=== PATIENT | male | born 1995 | race Caucasian/White ===

== ENCOUNTER 2018-01-24 16:32 | Emergency (ER) | payer OTHER ==
--- NOTE | 2018-01-24 17:09 | EDPHY ---
General Time Seen by Provider: 01/24/18 17:02 Narrative: CHIEF COMPLAINT: Burn to hand HISTORY OF PRESENT ILLNESS: Patient presents with complaints of burn to hand. He states that he was at work earlier today, and at 11:00 a.m. He sustained a burn to the left hand. He was holding a cup and pouring hot food into it when it spilled over the edge. It burned him on the dorsum of the left hand involving the base of thumb, the base of the 2nd metacarpal. There is no of the palmar side moderately to severely painful at times. He has been place and ice continue sleep. He has irrigated. He has not applied any medications or topical treatments. He has worse pain with movement. Improved at rest. Does not radiate. No difficulty bending or straightening the fingers but it is painful to do so. Tetanus up-to- date. Right-hand dominant. REVIEW OF SYSTEMS: 10 systems were reviewed and negative with the exception of the elements mentioned in the history of present illness. PCP: Located in [place] SPECIALISTS: None PAST MEDICAL HISTORY: Uncomplicated. Nondiabetic PAST SURGICAL HISTORY: No surgical history SOCIAL HISTORY: No tobacco use. Works at [employer] and lives in [place] FAMILY HISTORY: Noncontributory EXAMINATION: General Appearance: Alert, no distress Head: normocephalic, atraumatic Eyes: Pupils equal and round, no conjunctival pallor or injection ENT, Mouth: Mucous membranes moist Neck: Normal inspection, supple, non-tender Respiratory: Lungs are clear to auscultation Cardiovascular: Regular rate and rhythm. Symmetric radial pulses 2+. Neurological: A&O, nonfocal, normal gait. Light sensory symmetric in the upper extremities. Two point sensation intact on the left hand. Excellent strength of the interossei symmetrically. Skin: Warm and dry. There is superficial burn to the dorsum of the left hand involving the thumb, index finger and metacarpals. There is no circumferential burn at any location. No palmar involvement. There is no blistering or full- thickness involvement. Extremities: Moderate tenderness to the left hand over the areas of superficial burn. Range of motion is intact and symmetric to the right upper extremity. Compartments are soft with no circumferential burn or strictures. Psychiatric: Mood and affect normal DIFFERENTIAL DIAGNOSES: Including but not limited to superficial burn, second-degree burn, full- thickness burn MDM: 5:10 p.m. Superficial, 1st degree burn of the left hand involving the dorsum only. This is non circumferential. It does not involve the palm. There is no second- degree or third-degree burn. He has full range of motion of the hand without any restrictions. This happened earlier today. His tetanus is up-to-date. There is no signs of infection. 5:15 p.m. I discussed the case with the on-call burn surgeon Dr. Alan. He agrees with irrigation, bacitracin, nonadherent dressing and gauze dressing overlying this. He would like the patient to be seen in their outpatient burn clinic at [facility] on Friday between 8:00 a.m. And 10:00 a.m.. He would like him to be NPO after midnight Friday night. No further recommendations. 5:25 p.m. Patient re-evaluated. I discussed my conversation with burn surgeon. I discussed discharge home with pain medication, ice, elevation and work note. We discussed the specific details of his appointment on Friday. We discussed follow up with [facility]. We discussed ED precautions for fever, redness, warmth. He is comfortable this plan and discharged home stable condition. SUPERVISION: This patient was independently evaluated without direct involvement of or examination by the attending physician. CONSULTATION: [facility], Dr. Alan - History Smoking Status: Former smoker - Objective Vital Signs: Initial Vital Signs Temperature (C) 98.1 F 01/24/18 16:34 Heart Rate 108 H 01/24/18 16:34 Respiratory Rate 18 01/24/18 16:34 Blood Pressure 128/70 H 01/24/18 16:34 O2 Sat (%) 97 01/24/18 16:34 O2 Delivery Mode Room Air Allergies/Adverse Reactions: No Known Allergies Allergy (Unverified 01/24/18 16:34) Home Medications: Medication Instructions Recorded NK [No Known Home Meds] 01/24/18 Medications Given: Discontinued Medications Oxycodone/Acetaminophen (Percocet 5/325mg Prepack#4) 1 btl TAKEHOME EDNOW ONE Stop: 01/24/18 17:16 Last Admin: 01/24/18 17:24 Dose: 1 btl Departure - Departure Disposition: Home, Routine, Self-Care Clinical Impression: Burn of hand, left, first degree Qualifiers: Encounter type: initial encounter Burn of hand location: multiple fingers including thumb Qualified Code(s): T23.142A - Burn of first degree of multiple left fingers (nail), including thumb, initial encounter Condition: Good Instructions: Oxycodone/Acetaminophen (By mouth), Superficial Burn (ED) Additional Instructions: 1. Thin layer bacitracin and non adherent gauze changed once daily. Do not apply any other medication or topical so this 2. Apply ice over your bandage as needed 3. Pain medication as prescribed as needed 4. Follow up with the [facility] burn center on Friday between 8:00 a.m. And 10:00 a.m.. Do not eat or drink anything at all 6 hr prior to this. I have provided a printed copy of the instructions and direction to the location. 5. ED precautions as discussed and demonstrated Referrals: Eliza Levy MD [Medical Doctor] - As per Instructions Physician,Emergency DeptMD [Medical Doctor] - As per Instructions Stand Alone Forms: Work Comp Follow Up, Work Excuse
[2018-01-24] MEDS ORDERED: OXYCODONE/APAP 5/325MG PREPACK#4 BTL TAKEHOME ONE (17:15)
[2018-01-24 17:41] VITALS: BP 120/79
== END 2018-01-24 17:43 | disposition home or self-care (01) ==
DX: T23.162A Burn of first degree of back of left hand, initial encounter (principal); X10.1XXA Contact with hot food, initial encounter; Y92.511 Restaurant or cafe as the place of occurrence of the external cause; Y93.G1 Activity, food preparation and clean up; Y99.0 Civilian activity done for income or pay